=== PATIENT | male | born 1995 | race Asian ===

== ENCOUNTER 2016-08-24 09:06 | Emergency (ER) | payer OTHER ==
[2016-08-24] MEDS ORDERED: KETOROLAC 30 MG/ML VIAL (J1885) As Ordered ONE (09:19)
[2016-08-24] MEDS ORDERED: ONDANSETRON 4MG/2ML VIAL (J2405) As Ordered ONE (09:19)
[2016-08-24 09:35] LABS: BASO % 0.3 % (0.0-1.0); EOS # 0.1 K/mm3 (0.0-0.50); EOS % 0.9 % (0.0-3.0); LARGE UNSTAINED CELL # 0.1 K/mm3 (0.0-0.4); LARGE UNSTAINED CELL % 1.9 % (0.0-4.0); LYMPH # 0.4 K/mm3 (1.5-6.5); MEAN CORPUSCULAR HEMOGLOBIN 29.1 pg (27.0-33.0); MEAN CORPUSCULAR HGB CONC 33.5 g/dl (32.0-36.5); MONO % 14.8 % (0.0-5.0); NEUTROPHILS # 5.1 K/mm3 (1.8-7.7); NEUTROPHILS % 76.1 % (36.0-66.0); PLATELET COUNT, AUTOMATED 183 k/mm3 (150-450); RED CELL DISTRIBUTION WIDTH 11.9 % (11.5-14.5); WHITE BLOOD COUNT 6.6 K/mm3 (4.0-10.0)
[2016-08-24 09:56] LABS: ALBUMIN 4.4 GM/DL (3.2-5.2); ALBUMIN/GLOBULIN RATIO 1.16 (1.00-1.93); ALKALINE PHOSPHATASE 69 U/L (45-117); ALT/SGPT 25 U/L (12-78); ANION GAP 11 MEQ/L (8-16); AST/SGOT 18 U/L (15-37); BILIRUBIN,DIRECT 0.2 MG/DL (0.0-0.2); BILIRUBIN,TOTAL 0.5 MG/DL (0.2-1.0); BLOOD UREA NITROGEN 13 MG/DL (7-18); CALCIUM LEVEL 9.3 MG/DL (8.5-10.1); CARBON DIOXIDE LEVEL 28 MEQ/L (21-32); CHLORIDE LEVEL 100 MEQ/L (98-107); CREATININE FOR GFR 1.28 MG/DL (0.70-1.30); GLOMERULAR FILTRATION RATE > 60.0 (>60); GLUCOSE, FASTING 92 MG/DL (70-105); POTASSIUM SERUM 3.9 MEQ/L (3.5-5.1); SODIUM LEVEL 139 MEQ/L (136-145); TOTAL PROTEIN 8.2 GM/DL (6.4-8.2)
--- NOTE | 2016-08-24 10:27 | EDDOCDS ---
Physician Documentation [facility] Name: Braydon Amaya Age: 20 yrs Sex: Male : 1995 Arrival Date: 08/24/2016 Time: 09:06 Bed I2 / M2 Private MD: [facility] [place] Disposition: 08/24/16 10:01 Discharged to Home/Self Care. Impression: Nausea and vomiting, Diarrhea, unspecified. - Condition is Stable. - Discharge Instructions: Viral Gastroenteritis. - Prescriptions for ZOFRAN ODT 4 mg - dissolve 1 tablet by ORAL route 4 times per day As needed do not chew, do not swallow whole; 10 tablet. - Medication Reconciliation form. - Follow up: [facility]; When: Tomorrow; Reason: Wound/Symptom Recheck, Recheck today's complaints, Worsening of conditions, Continuance of care. - Problem is an ongoing problem. - Symptoms have improved. Historical: - Allergies: No known drug Allergies; - Home Meds: 1. none - PMHx: none; - PSHx: none; - Social history: No barriers to communication noted, The patient speaks fluent Zambian, Speaks appropriately for age, Smoking status: Patient states was never smoker of tobacco. - Family history: Not pertinent. - : The pt / caregiver states he / she is not on anticoagulants. Home medication list is obtained from the patient. - Exposure Risk Screening:: None identified. Vital Signs: 08/24 09:11 BP 152 / 78; Pulse 81; Resp 18; Temp 99.3(TE); Pulse Ox 99% on R/A; Weight 81.65 kg / kc3 180.01 lbs; Height 5 ft. 10 in. (177.80 cm); 10:25 BP 142 / 68; Pulse 73; Resp 18; Temp 99.4(O); Pulse Ox 97% on R/A; Pain 5/10; kc3 09:11 Body Mass Index 25.83 (81.65 kg, 177.80 cm) kc3 MDM: 09:13 Ondansetron 4 mg IVP once ordered. cc10 09:13 NS 0.9% 1000 ml IV at bolus once ordered. cc10 09:13 IV Saline Lock ordered. cc10 09:13 Undress patient appropriately for examination ordered. cc10 09:13 ketorolac 30 mg IVP once ordered. cc10 09:14 CBC with Diff Ordered. EDMS 09:14 BMP Ordered. EDMS 09:14 Liver Profile Ordered. EDMS 09:14 Lipase Ordered. EDMS 09:21 Financial registration complete. lg 09:32 [facility] Payment Agreement was scanned into [email or web address] and attached to record. lg 09:53 CBC with Diff Reviewed. cc10 10:00 BMP Reviewed. cc10 10:00 Liver Profile Reviewed. cc10 10:00 Lipase Reviewed. cc10 Administered Medications: Drug: Ondansetron 4 mg [ondansetron HCl 2 mg/mL intravenous solution (2 mL)] Route: kc3 IVP; Site: left antecubital; Drug: NS 0.9% 1000 ml [sodium chloride 0.9 % intravenous solution] Route: IV; Rate: kc3 bolus; Site: left antecubital; Drug: ketorolac 30 mg [ketorolac 30 mg/mL (1 mL) injection solution (1 mL)] Route: IVP; kc3 Site: left antecubital; Signatures: Dispatcher [employer] EDMS Julita Russell, Reg Reg lg Andres Puckett, PAAjayC PA-C cc10 Xena Solorio,ELMO RN kc3 The chart was reviewed and I authenticate all verbal orders and agree with the evaluation and treatment provided.Attachments: 09:32 [facility] Payment Agreement lg MTDD
--- NOTE | 2016-08-24 10:27 | EDDOCDS ---
Nurse's Notes [facility] Name: Braydon Amaya Age: 20 yrs Sex: Male : 1995 Arrival Date: 08/24/2016 Time: 09:06 Bed I2 / M2 Private MD: KSGeorge QUAN Diagnosis: Nausea and vomiting;Diarrhea, unspecified Presentation: 08/24 09:08 Presenting complaint: EMS states: Fever, n/v, and abdominal pain x 2 days with guarding kc3 reported. Fever of 101.6 this morning with Tylenol and Ibuprofen given at 0815 today. 09:10 Adult Sepsis Screening: The patient does not have new or worsening altered mentation. kc3 Patient's respiratory rate is less than 22. Systolic blood pressure is greater than 100. Patient has a qSOFA score of 0- Negative Sepsis Screen. 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 Transition of care: patient was received from a primary care office; [facility]. 09:10 Acuity: LUIS ALBERTO Level 3 kc3 09:10 Method Of Arrival: Ambulance kc3 09:12 Risk factors: the patient reports not having a history of previous torsion. kc3 Suicide/Homicide risk assessment- the patient denies having any suicidal and/or homicidal ideations and does not present with any other emotional, behavioral or mental health complaints. Triage Assessment: 09:13 General: Appears uncomfortable, Behavior is appropriate for age, cooperative. Pain: kc3 Location: abdomen Pain currently is 10 out of 10 on a pain scale. HIV screening NA for this visit Offered previously. The patient is triaged at the bedside. See Assessment in Nurses Notes section of ED record. Neurological: Level of Consciousness is awake, alert, obeys commands, Oriented to person, place, time. Respiratory: Airway is patent Respiratory effort is even, unlabored. GI: Abdomen is flat, Bowel sounds present X 4 quads. Abd is soft X 4 quads Abd is tender to palpation in Mid-abdominal Reports diarrhea, nausea, vomiting. Derm: Skin is normal. Musculoskeletal: Circulation, motion, and sensation intact. Historical: - Allergies: No known drug Allergies; - Home Meds: 1. none - PMHx: none; - PSHx: none; - Social history: No barriers to communication noted, The patient speaks fluent Arabic, Speaks appropriately for age, Smoking status: Patient states was never smoker of tobacco. - Family history: Not pertinent. - : The pt / caregiver states he / she is not on anticoagulants. Home medication list is obtained from the patient. - Exposure Risk Screening:: None identified. Screenin:15 Screening information is obtained from the patient. Fall risk: No risks identified. kc3 Assistance ADL's: requires no assistance with activities of daily living. Abuse/DV Screen: The patient / caregiver reports he/she is: not in a situation that causes fear, pain or injury. Nutritional screening: No deficits noted. Advance Directives: Currently, there is no health care proxy. home support is adequate. Assessment: 09:15 General: See triage for initial assessment. . kc3 10:24 General: Appears in no apparent distress, comfortable, Behavior is appropriate for age, kc3 cooperative. Pain: Location: abdomen Pain currently is 5 out of 10 on a pain scale. Neurological: Level of Consciousness is awake, alert, obeys commands, Oriented to person, place, time. Respiratory: Respiratory effort is even, unlabored. GI: Abdomen is flat. Derm: Skin is pink, warm & dry. Vital Signs: 09:11 BP 152 / 78; Pulse 81; Resp 18; Temp 99.3(TE); Pulse Ox 99% on R/A; Weight 81.65 kg; kc3 Height 5 ft. 10 in. (177.80 cm); 10:25 BP 142 / 68; Pulse 73; Resp 18; Temp 99.4(O); Pulse Ox 97% on R/A; Pain 5/10; kc3 09:11 Body Mass Index 25.83 (81.65 kg, 177.80 cm) 3 Vitals: 09:11 Log In Time N/A - ambulance arrival. kc3 ED Course: 09:07 Patient visited by Erica Nunez, Cash Grain Grower. lbd 09:07 Patient moved to Waiting lbd 09:08 [facility], George Ramsey is Private Physician. lbd 09:08 Patient moved to I3 / M3 lbd 09:09 Andres Puckett PA-C is [facility]. cc10 09:09 Crystal Mcfarland MD is Attending Physician. cc10 09:10 Patient moved to I2 / M2 kc3 09:11 Triage Initiated kc3 09:14 Patient visited by Andres Puckett PA-C. cc10 09:14 Patient visited by Andres Puckett PA-C. cc10 09:14 Inserted saline lock: 18 gauge in left antecubital area and blood collected. The kc3 patient tolerated the procedure well. placed by Barb Lopez RN. 09:17 Patient visited by Xena Solorio RN. kc3 09:17 The patient / caregiver is instructed regarding the plan of care and ED course. kc3 09:17 Lipase Sent. kc3 09:17 Liver Profile Sent. kc3 09:17 BMP Sent. kc3 09:17 CBC with Diff Sent. kc3 09:27 Patient visited by Xena Solorio RN. kc3 09:32 Patient name changed from Braydon\S\Jeffryl\S\Amaya\S\ to Braydon\S\J\S\Amaya. EDMS 09:32 [facility] Payment Agreement was scanned into [employer] and attached to record. lg 10:00 [facility], George Ramsey is Referral Physician. cc10 10:25 Discontinued IV lock intact, bleeding controlled, pressure dressing applied, No kc3 redness/swelling at site. No procedures done that require assistance. Administered Medications: 09:26 Drug: Ondansetron 4 mg [ondansetron HCl 2 mg/mL intravenous solution (2 mL)] Route: kc3 IVP; Site: left antecubital; 09:26 Drug: NS 0.9% 1000 ml [sodium chloride 0.9 % intravenous solution] Route: IV; Rate: kc3 bolus; Site: left antecubital; 09:26 Drug: ketorolac 30 mg [ketorolac 30 mg/mL (1 mL) injection solution (1 mL)] Route: IVP; kc3 Site: left antecubital; Order Results: Lab Order: CBC with Diff; SPEC'M 08/24/16 09:17 Test: WHITE BLOOD COUNT; Value: 6.6; Range: 4.0-10.0; Units: K/mm3; Status: F Test: RED BLOOD COUNT; Value: 5.22; Range: 4.30-6.10; Units: M/mm3; Status: F Test: HEMOGLOBIN; Value: 15.2; Range: 14.0-18.0; Units: g/dl; Status: F Test: HEMATOCRIT; Value: 45.4; Range: 42.0-52.0; Units: %; Status: F Test: MEAN CORPUSCULAR VOLUME; Value: 87.0; Range: 80.0-96.0; Units: fl; Status: F Test: MEAN CORPUSCULAR HEMOGLOBIN; Value: 29.1; Range: 27.0-33.0; Units: pg; Status: F Test: MEAN CORPUSCULAR HGB CONC; Value: 33.5; Range: 32.0-36.5; Units: g/dl; Status: F Test: RED CELL DISTRIBUTION WIDTH; Value: 11.9; Range: 11.5-14.5; Units: %; Status: F Test: PLATELET COUNT, AUTOMATED; Value: 183; Range: 150-450; Units: k/mm3; Status: F Test: NEUTROPHILS %; Value: 76.1; Range: 36.0-66.0; Abnormal: Above high normal; Units: %; Status: F Test: LYMPH %; Value: 6.0; Range: 24.0-44.0; Abnormal: Below low normal; Units: %; Status: F Test: MONO %; Value: 14.8; Range: 0.0-5.0; Abnormal: Above high normal; Units: %; Status: F Test: EOS %; Value: 0.9; Range: 0.0-3.0; Units: %; Status: F Test: BASO %; Value: 0.3; Range: 0.0-1.0; Units: %; Status: F Test: LARGE UNSTAINED CELL %; Value: 1.9; Range: 0.0-4.0; Units: %; Status: F Test: NEUTROPHILS #; Value: 5.1; Range: 1.8-7.7; Units: K/mm3; Status: F Test: LYMPH #; Value: 0.4; Range: 1.5-6.5; Abnormal: Below low normal; Units: K/mm3; Status: F Test: MONO #; Value: 1.0; Range: 0.0-0.8; Abnormal: Above high normal; Units: K/mm3; Status: F Test: EOS #; Value: 0.1; Range: 0.0-0.50; Units: K/mm3; Status: F Test: BASO #; Value: 0.0; Range: 0.0-0.2; Units: K/mm3; Status: F Test: LARGE UNSTAINED CELL #; Value: 0.1; Range: 0.0-0.4; Units: K/mm3; Status: F Lab Order: BMP; SPEC'M 08/24/16 09:17 Test: GLUCOSE, FASTING; Value: 92; Range: 70-105; Units: MG/DL; Status: F Test: BLOOD UREA NITROGEN; Value: 13; Range: 7-18; Units: MG/DL; Status: F Test: CREATININE FOR GFR; Value: 1.28; Range: 0.70-1.30; Units: MG/DL; Status: F Test: GLOMERULAR FILTRATION RATE; Value: > 60.0; Range: >60; Status: F Test: SODIUM LEVEL; Value: 139; Range: 136-145; Units: MEQ/L; Status: F Test: POTASSIUM SERUM; Value: 3.9; Range: 3.5-5.1; Units: MEQ/L; Status: F Test: CHLORIDE LEVEL; Value: 100; Range: 98-107; Units: MEQ/L; Status: F Test: CARBON DIOXIDE LEVEL; Value: 28; Range: 21-32; Units: MEQ/L; Status: F Test: ANION GAP; Value: 11; Range: 8-16; Units: MEQ/L; Status: F Test: CALCIUM LEVEL; Value: 9.3; Range: 8.5-10.1; Units: MG/DL; Status: F Test Note: ; Units are mL/min/1.73 m2 Chronic Kidney Disease Staging per NKF: Stage I & II GFR >=60 Normal to Mildly Decreased Stage III GFR 30-59 Moderately Decreased Stage IV GFR 15-29 Severely Decreased Stage V GFR <15 Very Little GFR Left ESRD GFR <15 on FINISHED GARMENT INSPECTOR Lab Order: Liver Profile; SPEC'M 08/24/16 09:17 Test: AST/SGOT; Value: 18; Range: 15-37; Units: U/L; Status: F Test: ALT/SGPT; Value: 25; Range: 12-78; Units: U/L; Status: F Test: ALKALINE PHOSPHATASE; Value: 69; Range: 45-117; Units: U/L; Status: F Test: BILIRUBIN,TOTAL; Value: 0.5; Range: 0.2-1.0; Units: MG/DL; Status: F Test: BILIRUBIN,DIRECT; Value: 0.2; Range: 0.0-0.2; Units: MG/DL; Status: F Test: TOTAL PROTEIN; Value: 8.2; Range: 6.4-8.2; Units: GM/DL; Status: F Test: ALBUMIN; Value: 4.4; Range: 3.2-5.2; Units: GM/DL; Status: F Test: ALBUMIN/GLOBULIN RATIO; Value: 1.16; Range: 1.00-1.93; Status: F Lab Order: Lipase; SPEC'M 08/24/16 09:17 Test: LIPASE; Value: 108; Range: 73-393; Units: U/L; Status: F Outcome: 10:01 Discharge ordered by Provider. cc10 10:25 Discharge Assessment: Patient awake, alert and oriented x 3. No cognitive and/or kc3 functional deficits noted. Patient verbalized understanding of disposition instructions. patient administered narcotics - no. The following High Risk Discharge criteria are identified: None. Discharged to home ambulatory. Condition: stable. Discharge instructions given to patient, Instructed on discharge instructions, follow up and referral plans. medication usage, Demonstrated understanding of instructions, medications, Pt was receptive of discharge instructions/ teaching. Prescriptions given X 1. No special radiology studies were completed. Property :Personal belongings accompany Pt. 10:26 Patient left the ED. kc3 Signatures: Dispatcher [employer] EDErica Vaughan, Cash Grain Grower Unit lbd Julita Russell, Sourav Reg Andres Newman PA-C PAMayi cc10 Xena Solorio RN RN kc3 Corrections: (The following items were deleted from the chart) 09:17 09:13 GI: Abdomen is flat, Reports diarrhea, nausea, vomiting, kc3 kc3 MTDD
--- NOTE | 2016-08-26 11:27 | EDDOCDS ---
Physician Documentation [facility] Name: Braydon Amaya Age: 20 yrs Sex: Male : 1995 Arrival Date: 08/24/2016 Time: 09:06 Bed I2 / M2 Private MD: [facility] [place] Disposition: 08/24/16 10:01 Discharged to Home/Self Care. Impression: Nausea and vomiting, Diarrhea, unspecified. - Condition is Stable. - Discharge Instructions: Viral Gastroenteritis. - Prescriptions for ZOFRAN ODT 4 mg - dissolve 1 tablet by ORAL route 4 times per day As needed do not chew, do not swallow whole; 10 tablet. - Medication Reconciliation form. - Follow up: [facility]; When: Tomorrow; Reason: Wound/Symptom Recheck, Recheck today's complaints, Worsening of conditions, Continuance of care. - Problem is an ongoing problem. - Symptoms have improved. Historical: - Allergies: No known drug Allergies; - Home Meds: 1. none - PMHx: none; - PSHx: none; - Social history: No barriers to communication noted, The patient speaks fluent Fijian, Speaks appropriately for age, Smoking status: Patient states was never smoker of tobacco. - Family history: Not pertinent. - : The pt / caregiver states he / she is not on anticoagulants. Home medication list is obtained from the patient. - Exposure Risk Screening:: None identified. Vital Signs: 08/24 09:11 BP 152 / 78; Pulse 81; Resp 18; Temp 99.3(TE); Pulse Ox 99% on R/A; Weight 81.65 kg / kc3 180.01 lbs; Height 5 ft. 10 in. (177.80 cm); 10:25 BP 142 / 68; Pulse 73; Resp 18; Temp 99.4(O); Pulse Ox 97% on R/A; Pain 5/10; kc3 09:11 Body Mass Index 25.83 (81.65 kg, 177.80 cm) kc3 MDM: 09:13 Ondansetron 4 mg IVP once ordered. cc10 09:13 NS 0.9% 1000 ml IV at bolus once ordered. cc10 09:13 IV Saline Lock ordered. cc10 09:13 Undress patient appropriately for examination ordered. cc10 09:13 ketorolac 30 mg IVP once ordered. cc10 09:14 CBC with Diff Ordered. EDMS 09:14 BMP Ordered. EDMS 09:14 Liver Profile Ordered. EDMS 09:14 Lipase Ordered. EDMS 09:21 Financial registration complete. lg 09:32 [facility] Payment Agreement was scanned into [employer] and attached to record. lg 09:53 CBC with Diff Reviewed. cc10 10:00 BMP Reviewed. cc10 10:00 Liver Profile Reviewed. cc10 10:00 Lipase Reviewed. cc10 13:20 T-Sheet-- Draft Copy was scanned into [employer] and attached to record. gb 13:20 PCR was scanned into [employer] and attached to record. gb Administered Medications: : Drug: Ondansetron 4 mg [ondansetron HCl 2 mg/mL intravenous solution (2 mL)] Route: kc3 IVP; Site: left antecubital; Drug: NS 0.9% 1000 ml [sodium chloride 0.9 % intravenous solution] Route: IV; Rate: kc3 bolus; Site: left antecubital; Drug: ketorolac 30 mg [ketorolac 30 mg/mL (1 mL) injection solution (1 mL)] Route: IVP; kc3 Site: left antecubital; Signatures: Dispatcher [employer] EDMS Karla Reeder, Reg Reg gb Julita Russell, Reg Reg lg Andres Puckett, PA-C PA-C cc10 Xena Solorio,RN RN kc3 The chart was reviewed and I authenticate all verbal orders and agree with the evaluation and treatment provided.Attachments: :32 [facility] Payment Agreement lg 13:20 T-Sheet-- Draft Copy gb Chart Complete MTDD
--- NOTE | 2016-08-26 11:27 | EDDOCDS ---
Nurse's Notes [facility] Name: Braydon Amaya Age: 20 yrs Sex: Male : 1995 Arrival Date: 08/24/2016 Time: 09:06 Bed I2 / M2 Private MD: OHGeorge QUAN Diagnosis: Nausea and vomiting;Diarrhea, unspecified Presentation: 08/24 09:08 Presenting complaint: EMS states: Fever, n/v, and abdominal pain x 2 days with guarding kc3 reported. Fever of 101.6 this morning with Tylenol and Ibuprofen given at 0815 today. 09:10 Adult Sepsis Screening: The patient does not have new or worsening altered mentation. kc3 Patient's respiratory rate is less than 22. Systolic blood pressure is greater than 100. Patient has a qSOFA score of 0- Negative Sepsis Screen. 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 Transition of care: patient was received from a primary care office; [facility]. 09:10 Acuity: LUIS ALBERTO Level 3 kc3 09:10 Method Of Arrival: Ambulance kc3 09:12 Risk factors: the patient reports not having a history of previous torsion. kc3 Suicide/Homicide risk assessment- the patient denies having any suicidal and/or homicidal ideations and does not present with any other emotional, behavioral or mental health complaints. Triage Assessment: 09:13 General: Appears uncomfortable, Behavior is appropriate for age, cooperative. Pain: kc3 Location: abdomen Pain currently is 10 out of 10 on a pain scale. HIV screening NA for this visit Offered previously. The patient is triaged at the bedside. See Assessment in Nurses Notes section of ED record. Neurological: Level of Consciousness is awake, alert, obeys commands, Oriented to person, place, time. Respiratory: Airway is patent Respiratory effort is even, unlabored. GI: Abdomen is flat, Bowel sounds present X 4 quads. Abd is soft X 4 quads Abd is tender to palpation in Mid-abdominal Reports diarrhea, nausea, vomiting. Derm: Skin is normal. Musculoskeletal: Circulation, motion, and sensation intact. Historical: - Allergies: No known drug Allergies; - Home Meds: 1. none - PMHx: none; - PSHx: none; - Social history: No barriers to communication noted, The patient speaks fluent Georgian, Speaks appropriately for age, Smoking status: Patient states was never smoker of tobacco. - Family history: Not pertinent. - : The pt / caregiver states he / she is not on anticoagulants. Home medication list is obtained from the patient. - Exposure Risk Screening:: None identified. Screenin:15 Screening information is obtained from the patient. Fall risk: No risks identified. kc3 Assistance ADL's: requires no assistance with activities of daily living. Abuse/DV Screen: The patient / caregiver reports he/she is: not in a situation that causes fear, pain or injury. Nutritional screening: No deficits noted. Advance Directives: Currently, there is no health care proxy. home support is adequate. Assessment: 09:15 General: See triage for initial assessment. . kc3 10:24 General: Appears in no apparent distress, comfortable, Behavior is appropriate for age, kc3 cooperative. Pain: Location: abdomen Pain currently is 5 out of 10 on a pain scale. Neurological: Level of Consciousness is awake, alert, obeys commands, Oriented to person, place, time. Respiratory: Respiratory effort is even, unlabored. GI: Abdomen is flat. Derm: Skin is pink, warm & dry. Vital Signs: 09:11 BP 152 / 78; Pulse 81; Resp 18; Temp 99.3(TE); Pulse Ox 99% on R/A; Weight 81.65 kg; kc3 Height 5 ft. 10 in. (177.80 cm); 10:25 BP 142 / 68; Pulse 73; Resp 18; Temp 99.4(O); Pulse Ox 97% on R/A; Pain 5/10; kc3 09:11 Body Mass Index 25.83 (81.65 kg, 177.80 cm) 3 Vitals: 09:11 Log In Time N/A - ambulance arrival. kc3 ED Course: 09:07 Patient visited by Erica Nunez, Corrective And Manual Arts Therapist. lbd 09:07 Patient moved to Waiting lbd 09:08 [facility], George Ramsey is Private Physician. lbd 09:08 Patient moved to I3 / M3 lbd 09:09 [facility]. cc10 09:09 Crystal Mcfarland MD is Attending Physician. cc10 09:10 Patient moved to I2 / M2 kc3 09:11 Triage Initiated kc3 09:14 Patient visited by Andres Puckett PA-C. cc10 09:14 Patient visited by Andres Puckett PA-C. cc10 09:14 Inserted saline lock: 18 gauge in left antecubital area and blood collected. The kc3 patient tolerated the procedure well. placed by Barb Lopez RN. 09:17 Patient visited by Xena Solorio RN. kc3 09:17 The patient / caregiver is instructed regarding the plan of care and ED course. kc3 09:17 Lipase Sent. kc3 09:17 Liver Profile Sent. kc3 09:17 BMP Sent. kc3 09:17 CBC with Diff Sent. kc3 09:27 Patient visited by Xena Solorio RN. kc3 09:32 Patient name changed from Braydon\S\Jeffryl\S\Amaya\S\ to Braydon\S\J\S\Amaya. EDMS 09:32 [facility] Payment Agreement was scanned into [employer] and attached to record. lg 10:00 [facility], George Ramsey is Referral Physician. cc10 10:25 Discontinued IV lock intact, bleeding controlled, pressure dressing applied, No kc3 redness/swelling at site. No procedures done that require assistance. 13:20 T-Sheet-- Draft Copy was scanned into [employer] and attached to record. gb 13:20 PCR was scanned into [employer] and attached to record. gb Administered Medications: 09:26 Drug: Ondansetron 4 mg [ondansetron HCl 2 mg/mL intravenous solution (2 mL)] Route: kc3 IVP; Site: left antecubital; 09:26 Drug: NS 0.9% 1000 ml [sodium chloride 0.9 % intravenous solution] Route: IV; Rate: kc3 bolus; Site: left antecubital; :26 Drug: ketorolac 30 mg [ketorolac 30 mg/mL (1 mL) injection solution (1 mL)] Route: IVP; kc3 Site: left antecubital; Order Results: Lab Order: CBC with Diff; SPEC'M 08/24/16 09:17 Test: WHITE BLOOD COUNT; Value: 6.6; Range: 4.0-10.0; Units: K/mm3; Status: F Test: RED BLOOD COUNT; Value: 5.22; Range: 4.30-6.10; Units: M/mm3; Status: F Test: HEMOGLOBIN; Value: 15.2; Range: 14.0-18.0; Units: g/dl; Status: F Test: HEMATOCRIT; Value: 45.4; Range: 42.0-52.0; Units: %; Status: F Test: MEAN CORPUSCULAR VOLUME; Value: 87.0; Range: 80.0-96.0; Units: fl; Status: F Test: MEAN CORPUSCULAR HEMOGLOBIN; Value: 29.1; Range: 27.0-33.0; Units: pg; Status: F Test: MEAN CORPUSCULAR HGB CONC; Value: 33.5; Range: 32.0-36.5; Units: g/dl; Status: F Test: RED CELL DISTRIBUTION WIDTH; Value: 11.9; Range: 11.5-14.5; Units: %; Status: F Test: PLATELET COUNT, AUTOMATED; Value: 183; Range: 150-450; Units: k/mm3; Status: F Test: NEUTROPHILS %; Value: 76.1; Range: 36.0-66.0; Abnormal: Above high normal; Units: %; Status: F Test: LYMPH %; Value: 6.0; Range: 24.0-44.0; Abnormal: Below low normal; Units: %; Status: F Test: MONO %; Value: 14.8; Range: 0.0-5.0; Abnormal: Above high normal; Units: %; Status: F Test: EOS %; Value: 0.9; Range: 0.0-3.0; Units: %; Status: F Test: BASO %; Value: 0.3; Range: 0.0-1.0; Units: %; Status: F Test: LARGE UNSTAINED CELL %; Value: 1.9; Range: 0.0-4.0; Units: %; Status: F Test: NEUTROPHILS #; Value: 5.1; Range: 1.8-7.7; Units: K/mm3; Status: F Test: LYMPH #; Value: 0.4; Range: 1.5-6.5; Abnormal: Below low normal; Units: K/mm3; Status: F Test: MONO #; Value: 1.0; Range: 0.0-0.8; Abnormal: Above high normal; Units: K/mm3; Status: F Test: EOS #; Value: 0.1; Range: 0.0-0.50; Units: K/mm3; Status: F Test: BASO #; Value: 0.0; Range: 0.0-0.2; Units: K/mm3; Status: F Test: LARGE UNSTAINED CELL #; Value: 0.1; Range: 0.0-0.4; Units: K/mm3; Status: F Lab Order: BMP; SPEC'M 08/24/16 09:17 Test: GLUCOSE, FASTING; Value: 92; Range: 70-105; Units: MG/DL; Status: F Test: BLOOD UREA NITROGEN; Value: 13; Range: 7-18; Units: MG/DL; Status: F Test: CREATININE FOR GFR; Value: 1.28; Range: 0.70-1.30; Units: MG/DL; Status: F Test: GLOMERULAR FILTRATION RATE; Value: > 60.0; Range: >60; Status: F Test: SODIUM LEVEL; Value: 139; Range: 136-145; Units: MEQ/L; Status: F Test: POTASSIUM SERUM; Value: 3.9; Range: 3.5-5.1; Units: MEQ/L; Status: F Test: CHLORIDE LEVEL; Value: 100; Range: 98-107; Units: MEQ/L; Status: F Test: CARBON DIOXIDE LEVEL; Value: 28; Range: 21-32; Units: MEQ/L; Status: F Test: ANION GAP; Value: 11; Range: 8-16; Units: MEQ/L; Status: F Test: CALCIUM LEVEL; Value: 9.3; Range: 8.5-10.1; Units: MG/DL; Status: F Test Note: ; Units are mL/min/1.73 m2 Chronic Kidney Disease Staging per NKF: Stage I & II GFR >=60 Normal to Mildly Decreased Stage III GFR 30-59 Moderately Decreased Stage IV GFR 15-29 Severely Decreased Stage V GFR <15 Very Little GFR Left ESRD GFR <15 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 Lab Order: Liver Profile; SPEC'M 08/24/16 09:17 Test: AST/SGOT; Value: 18; Range: 15-37; Units: U/L; Status: F Test: ALT/SGPT; Value: 25; Range: 12-78; Units: U/L; Status: F Test: ALKALINE PHOSPHATASE; Value: 69; Range: 45-117; Units: U/L; Status: F Test: BILIRUBIN,TOTAL; Value: 0.5; Range: 0.2-1.0; Units: MG/DL; Status: F Test: BILIRUBIN,DIRECT; Value: 0.2; Range: 0.0-0.2; Units: MG/DL; Status: F Test: TOTAL PROTEIN; Value: 8.2; Range: 6.4-8.2; Units: GM/DL; Status: F Test: ALBUMIN; Value: 4.4; Range: 3.2-5.2; Units: GM/DL; Status: F Test: ALBUMIN/GLOBULIN RATIO; Value: 1.16; Range: 1.00-1.93; Status: F Lab Order: Lipase; SPEC'M 08/24/16 09:17 Test: LIPASE; Value: 108; Range: 73-393; Units: U/L; Status: F Outcome: 10:01 Discharge ordered by Provider. cc10 10:25 Discharge Assessment: Patient awake, alert and oriented x 3. No cognitive and/or kc3 functional deficits noted. Patient verbalized understanding of disposition instructions. patient administered narcotics - no. The following High Risk Discharge criteria are identified: None. Discharged to home ambulatory. Condition: stable. Discharge instructions given to patient, Instructed on discharge instructions, follow up and referral plans. medication usage, Demonstrated understanding of instructions, medications, Pt was receptive of discharge instructions/ teaching. Prescriptions given X 1. No special radiology studies were completed. Property :Personal belongings accompany Pt. 10:26 Patient left the ED. kc3 Signatures: Dispatcher [employer] EDErica Vaughan, Corrective And Manual Arts Therapist Unit lbd Karla Reeder, Reg Reg gb Julita Russell, Reg Reg lg Andres Puckett, PA-C PA-C cc10 Xena Solorio,ELMO RN kc3 Corrections: (The following items were deleted from the chart) 09:17 09:13 GI: Abdomen is flat, Reports diarrhea, nausea, vomiting, kc3 kc3 Chart Complete MTDD
--- NOTE | 2016-08-26 11:27 | EDDOCDS ---
Physician Documentation [facility] Name: Braydon Amaya Age: 20 yrs Sex: Male : 1995 Arrival Date: 08/24/2016 Time: 09:06 Bed I2 / M2 Private MD: [facility] [place] Disposition: 08/24/16 10:01 Discharged to Home/Self Care. Impression: Nausea and vomiting, Diarrhea, unspecified. - Condition is Stable. - Discharge Instructions: Viral Gastroenteritis. - Prescriptions for ZOFRAN ODT 4 mg - dissolve 1 tablet by ORAL route 4 times per day As needed do not chew, do not swallow whole; 10 tablet. - Medication Reconciliation form. - Follow up: [facility]; When: Tomorrow; Reason: Wound/Symptom Recheck, Recheck today's complaints, Worsening of conditions, Continuance of care. - Problem is an ongoing problem. - Symptoms have improved. Historical: - Allergies: No known drug Allergies; - Home Meds: 1. none - PMHx: none; - PSHx: none; - Social history: No barriers to communication noted, The patient speaks fluent Tongan, Speaks appropriately for age, Smoking status: Patient states was never smoker of tobacco. - Family history: Not pertinent. - : The pt / caregiver states he / she is not on anticoagulants. Home medication list is obtained from the patient. - Exposure Risk Screening:: None identified. Vital Signs: 08/24 09:11 BP 152 / 78; Pulse 81; Resp 18; Temp 99.3(TE); Pulse Ox 99% on R/A; Weight 81.65 kg / kc3 180.01 lbs; Height 5 ft. 10 in. (177.80 cm); 10:25 BP 142 / 68; Pulse 73; Resp 18; Temp 99.4(O); Pulse Ox 97% on R/A; Pain 5/10; kc3 09:11 Body Mass Index 25.83 (81.65 kg, 177.80 cm) kc3 MDM: 09:13 Ondansetron 4 mg IVP once ordered. cc10 09:13 NS 0.9% 1000 ml IV at bolus once ordered. cc10 09:13 IV Saline Lock ordered. cc10 09:13 Undress patient appropriately for examination ordered. cc10 09:13 ketorolac 30 mg IVP once ordered. cc10 09:14 CBC with Diff Ordered. EDMS 09:14 BMP Ordered. EDMS 09:14 Liver Profile Ordered. EDMS 09:14 Lipase Ordered. EDMS 09:21 Financial registration complete. lg 09:32 [facility] Payment Agreement was scanned into [employer] and attached to record. lg 09:53 CBC with Diff Reviewed. cc10 10:00 BMP Reviewed. cc10 10:00 Liver Profile Reviewed. cc10 10:00 Lipase Reviewed. cc10 13:20 T-Sheet-- Draft Copy was scanned into [employer] and attached to record. gb 13:20 PCR was scanned into [employer] and attached to record. gb Administered Medications: : Drug: Ondansetron 4 mg [ondansetron HCl 2 mg/mL intravenous solution (2 mL)] Route: kc3 IVP; Site: left antecubital; Drug: NS 0.9% 1000 ml [sodium chloride 0.9 % intravenous solution] Route: IV; Rate: kc3 bolus; Site: left antecubital; Drug: ketorolac 30 mg [ketorolac 30 mg/mL (1 mL) injection solution (1 mL)] Route: IVP; kc3 Site: left antecubital; Signatures: Dispatcher [employer] EDMS Karla Reeder, Reg Reg gb Julita Russell, Reg Reg lg Andres Puckett, PA-C PA-C cc10 Xena Solorio,RN RN kc3 The chart was reviewed and I authenticate all verbal orders and agree with the evaluation and treatment provided.Attachments: :32 [facility] Payment Agreement lg 13:20 T-Sheet-- Draft Copy gb Chart Complete MTDD
== END 2016-08-24 10:26 | disposition home or self-care (01) ==
LOC: M ED 09:06
DX: R11.2 Nausea with vomiting, unspecified (principal); R19.7 Diarrhea, unspecified
CPT/HCPCS: 36415; 80048; 80076; 83690; 85025; 96374; 96375; 99284; J1885; J2405

== ENCOUNTER 2018-01-04 13:49 | Emergency (ER) | payer OTHER ==
[2018-01-04] MEDS: KETOROLAC 60 MG/2 ML VIAL (J1885) IM (14:18)
== END 2018-01-04 15:05 | disposition home or self-care (01) ==
LOC: M ED 13:49
DX: S93.402A Sprain of unspecified ligament of left ankle, initial encounter (principal); X50.1XXA Overexertion from prolonged static or awkward postures, initial encounter; Y92.89 Other specified places as the place of occurrence of the external cause; Y93.67 Activity, basketball
CPT/HCPCS: J1885